=== PATIENT | male | born 1955 | race Caucasian/White ===

== ENCOUNTER → 2021-08-18 | Day surgery (SDC) | payer MEDICARE ==
[~2021-08-18] VITALS: Ht 170.2 cm; Wt 77.1 kg
[~2021-08-18] MED LIST: ASPIRIN EC81 MG PO; GABAPENTIN300 MG PO; HYDROCODON-ACE1 EAC6 PO; LIPITOR 10MG TA10 MG PO; MELOXICAM15 MG PO; MOBIC15 MG PO; MULTI COMPLETE1 EACH PO; MULTIVITAMINS1 EAC1 PO; NEURONTIN300 MG PO; OXYCODON-ACETA1 EAC1 PO; PRINIVIL10 MG PO; PROBIOTIC1 EAC2 PO; VICODIN 10/3251 EACH PO; VOLTAREN100 GM TOP
[2021-08-18 06:55] LABS: HCT 36.7 % (42.0-52.0); HGB 12.9 g/dl (13.2-18.0); MCH 34.5 pg (25.0-31.0); MCHC 35.1 g/dL (32.0-36.0); MCV 98.1 fL (78.0-100.0); MPV 9.6 fL (6.0-9.5); RBC 3.74 M/uL (4.70-6.00); RDW 11.9 % (11.5-14.0); WBC 7.9 K/uL (4.0-10.5)
[2021-08-18 07:20] LABS: ALBUMIN 4.1 g/dL (3.4-5.0); BILIRUBIN - TOTAL 0.8 mg/dL (0.2-1.0); BUN/CREAT RATIO (CALC) 13.9 RATIO; CREATININE 0.79 mg/dL (0.67-1.17); GLOBULIN (CALCULATION) 3.1 g/dL; POTASSIUM 3.6 mmol/L (3.5-5.1); TOTAL PROTEIN 7.2 g/dL (6.4-8.2)
== END | disposition home or self-care (01) ==
LOC: FAS 06:02
PROVIDERS: Orthopaedic Surgery
DX: G56.03 Carpal tunnel syndrome, bilateral upper limbs (principal); G56.22 Lesion of ulnar nerve, left upper limb; M19.90 Unspecified osteoarthritis, unspecified site; F17.210 Nicotine dependence, cigarettes, uncomplicated; I10 Essential (primary) hypertension; Z79.1 Long term (current) use of non-steroidal anti-inflammatories (NSAID); Z79.82 Long term (current) use of aspirin; Z79.899 Other long term (current) drug therapy
CPT/HCPCS: 36415; 80053; J1100; J2250; J2405; J2704; J3010; J7120

== ENCOUNTER → 2021-09-29 | Day surgery (SDC) | payer MEDICARE, OTHER ==
[~2021-09-29] VITALS: Ht 170.2 cm; Wt 77.1 kg
[2021-09-29 06:49] LABS: BUN/CREAT RATIO (CALC) 11.4 RATIO; CREATININE 0.7 mg/dL (0.67-1.17); POTASSIUM 4.2 mmol/L (3.5-5.1)
== END | disposition home or self-care (01) ==
LOC: FAS 09-15 12:30
PROVIDERS: Anesthesiology
DX: G56.02 Carpal tunnel syndrome, left upper limb (principal); F17.210 Nicotine dependence, cigarettes, uncomplicated; I10 Essential (primary) hypertension; M19.011 Primary osteoarthritis, right shoulder; Z79.1 Long term (current) use of non-steroidal anti-inflammatories (NSAID); Z79.82 Long term (current) use of aspirin; Z79.899 Other long term (current) drug therapy; Z98.890 Other specified postprocedural states
CPT/HCPCS: 36415; 80048; 93005; J1100; J1885; J2250; J2405; J2704; J3010; J7120